=== PATIENT | female | born 1975 | race Caucasian/White ===

== ENCOUNTER 2021-07-20 07:17 | Emergency (ER) | payer OTHER, SELFPAY ==
--- NOTE | ~2021-07-20 | XR_ITS ---
EXAMINATION: XR chest 2V DATE: 07/20/2021 09:19 INDICATION: Left-sided chest and shoulder pain TECHNIQUE: PA and lateral views of the chest were obtained. COMPARISON: Chest radiograph dated 12/10/2018 FINDINGS: The lungs remain clear with no focal airspace opacities, pulmonary edema, pleural effusion or pneumot horax. The cardiomediastinal silhouette is normal. Mild thoracic spondylosis with chronic mild anteri or wedging of a couple mid thoracic vertebral bodies. IMPRESSION: 1. No acute cardiopulmonary disease. Reviewed, dictated and finalized at location A.
[2021-07-20 07:36] VITALS: BP 139/78; PULSE 74; RESP 18; TEMP 36.4; O2SAT 99
--- NOTE | 2021-07-20 07:41 | ECG_ITS ---
Measurements Intervals [place] Rate: 74 P: 55 ID: [id number] QRS: 29 QRSD: 85 T: 40 QT: 414 QTc: 462 Interpretive Statements SINUS RHYTHM NORMAL ECG Electronically Signed On 07-20-2021 7:51:57 CDT by Chandrakant Mae D.O.
[2021-07-20 07:50] VITALS: O2SAT 100
--- NOTE | 2021-07-20 07:57 | ED.UPPEXIN ---
HPI - Extremity Injury (Upper) General Chief Complaint: Extremity Injury, Upper Stated Complaint: L Shoulder Pain Time Seen by Provider: 07/20/21 07:52 Source: patient Mode of arrival: ambulatory Limitations: no limitations History of Present Illness HPI narrative: Patient is a 43 yo female with a history of diet controlled DM who presents for evaluation of left chest heaviness. Pt reported that symptoms began while she was at work, and has been experiencing the pain for 4 hours pain is 4/10. She did have some earlier dyspnea and dizziness that is resolved. She has had this occur in the past without known cause. Pt denies any dyspnea, palpitations. Pt does report some leg edema which is chronic. No fever, chills, nausea, vomiting or diaphoresis. 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 Nicotine patch at work. Smokes cigarettes. No history of early onset cardiac disease in family. No history of previous NV. No recent travel. No history of COVID. Related Data Allergies Allergy/AdvReac Type Severity Reaction Status Date / Time No Known Allergies Allergy Unverified 12/10/18 22:46 Review of Systems Review of Systems: CONSTITUTIONAL: Denies fever, chills, or sweats. EYES: Denies visual changes, redness, or discharge. ENT: Denies rhinorrhea, congestion, sore throat, or otalgia. CARDIOVASCULAR: Mild chest pain, denies palpitations, no pleuritic pain RESPIRATORY: Denies cough or dyspnea. GASTROINTESTINAL: Denies abdominal pain, nausea, vomiting, or diarrhea. GENITOURINARY: Denies dysuria or hematuria. SKIN: Denies rash or itching. MUSCULOSKELETAL: Denies back pain, joint pain, or myalgia. NEUROLOGIC: Denies headache, numbness, or weakness. [facility] Family History Family History (Updated 12/18/17 @ 22:07 by DOCTOR UNKNOWN) Mother Family history of mental disorder Family history of diabetes mellitus in first degree relative Diabetes mellitus Family history of hypercholesterolemia Sibling Family history of mental disorder Family history of diabetes mellitus in first degree relative Father Family history of diabetes mellitus in first degree relative Grandparent Family history of malignant neoplasm of breast Family history of heart disease in male family member before age 55 Cerebrovascular accident Other Family history of malignant neoplasm of male breast Social History Social History (Updated 07/20/21 @ 08:45 by Radha Suarez MD) Smoking status: Current every day smoker Tobacco type: cigarettes Second hand tobacco smoke exposure: Yes Alcohol intake: never Exam Narrative: GENERAL: Awake, alert, conversant HEAD: Normocephalic, atraumatic. EYES: PERRLA and EOMI. ENT: Nares clear, no rhinorrhea or epistaxis. Mucous membranes moist. NECK: Supple. CHEST: No respiratory distress, breathing even and non labored, no chest wall pain HEART: Regular rate, sinus rhythm ABDOMEN:Non distended, non tender EXTREMITIES: Normal range of motion. No pitting edema SKIN: Warm, dry, no rash. NEURO:No focal deficits. Alert and oriented x3 Course Vital Signs Vital signs: Vital Signs Temperature 36.4 C 07/20/21 07:36 Pulse Rate 74 07/20/21 07:36 Respiratory Rate 18 07/20/21 07:36 Blood Pressure 139/78 07/20/21 07:36 Pulse Oximetry 99 07/20/21 07:36 Temperature 36.4 C 07/20/21 07:36 Pulse Rate 82 07/20/21 09:42 Respiratory Rate 18 07/20/21 09:42 Blood Pressure 139/78 07/20/21 07:36 Pulse Oximetry 100 07/20/21 09:42 MDM - Extremity Injury (Upper) MDM Narrative Medical decision making narrative: The patient presented for evaluation of chest pain, left arm pain. Patient with pain around four hours at this point. EKG without acute ischemic changes. Vital signs are stable. Pt is not tachycardic or tachypneic. She is not hypoxic. Patient's EKG and labs are without significant high risk changes. Patient's heart score is 3. Cardiac risk facto
[2021-07-20 09:22] LABS: Basophils Percent Auto 0.4 % (0.2-1.2); Eosinophils Absolute Auto 0.3 K/mm3 (0-0.3); Eosinophils Percent Auto 3.7 % (0-4.4); Hemoglobin 14.1 g/dL (12.0-15.0); Immature Granulocyte Absolute 0.01 K/mm3 (0.00-0.031); Immature Granulocyte Percent A 0.1 % (0-0.5); Lymphocytes Absolute Auto 2.88 K/mm3 (0.9-3.2); Lymphocytes Percent Auto 42.8 % (18.3-44.2); Mean Corpuscular HGB Conc 33.6 g/dl (32-36); Mean Corpuscular Hemoglobin 31.3 pg (26-34); Mean Corpuscular Volume 93.3 fl (80-100); Mean Platelet Volume 9.9 fl (7.4-10.4); Monocytes Absolute Auto 0.5 K/mm3 (0.1-0.6); Monocytes Percent Auto 6.7 % (2.6-8.5); Neutrophils Absolute Auto 3.1 K/mm3 (1.3-6.7); Neutrophils Percent Auto 46.3 % (45.5-73.1); Platelet Count Result 266 k/mm3 (150-375); White Blood Count 6.7 K/mm3 (4.5-10.0)
[2021-07-20 09:34] LABS: INR 0.9; Prothrombin Time 11.8 Seconds (11.1-14.7)
[2021-07-20 09:35] LABS: Partial Thromboplastin Time 25.7 SECONDS (22.3-36.8)
[2021-07-20] MEDS: ASPIRIN 81 MG CHEWABLE TABLET 324 MG PO (09:35)
[2021-07-20] MEDS: ONDANSETRON INJ 4 MG/2 ML VIAL IV PUSH (09:36)
[2021-07-20] MEDS: MORPHINE SULFATE (*CRX) 4 MG/ML INJ IV PUSH (09:36)
[2021-07-20 09:42] VITALS: PULSE 82; RESP 18; O2SAT 100
[2021-07-20 09:53] LABS: Anion Gap 8 mmol/L (8-16); Blood Urea Nitrogen 8 mg/dL (7-17); Calcium 10.4 mg/dL (8.4-10.2); Carbon Dioxide 29 mmol/L (22-30); Chloride 103 mmol/L (98-107); Estimated CRCL calculation 77 ml/min; Estimated Glomerular Filt Rate > 60; Glucose 136 mg/dL (65-110); Sodium 140 mmol/L (137-145)
[2021-07-20 10:04] LABS: Troponin I < 0.012 ng/mL (0.000-0.034)
[2021-07-20 12:11] LABS: Troponin I < 0.012 ng/mL (0.000-0.034)
[2021-07-20 13:00] VITALS: BP 116/80; PULSE 80; RESP 16; TEMP 36.6; O2SAT 98
== END 2021-07-20 14:10 | disposition home or self-care (01) ==
PROVIDERS: Emergency Provider Emergency Medicine; PCP Family Medicine
DX: R07.89 Other chest pain (principal); E11.9 Type 2 diabetes mellitus without complications; F17.210 Nicotine dependence, cigarettes, uncomplicated
CPT/HCPCS: 36415; 71046; 80048; 84484; 85025; 85610; 85730; 93005; 96374; 96375; 99284; A9270; J2270; J2405

== ENCOUNTER 2021-10-17 04:24 | Emergency (ER) | payer OTHER, SELFPAY ==
--- NOTE | ~2021-10-17 | XR_ITS ---
XR chest 1V portable DATE: 10/17/2021 08:13 INDICATION: Covid TECHNIQUE: Portable AP chest on 10/17/2021 at 0802 hours COMPARISON: 07/20/2021 PA and lateral chest FINDINGS: Normal heart size. No hilar or mediastinal enlargement. The lungs are clear. No pleural eff usion or pulmonary vascular congestion or pneumothorax. IMPRESSION: Negative Reviewed, dictated and finalized at location A. TH INSPECTOR IMPRESSION: Negative
[2021-10-17 04:56] VITALS: BP 155/78; PULSE 91; RESP 17; TEMP 36.7; O2SAT 96
[2021-10-17 07:31] VITALS: BP 125/77; PULSE 87; RESP 20; TEMP 36.8; O2SAT 98
[2021-10-17 07:33] VITALS: O2SAT 99
--- NOTE | 2021-10-17 08:18 | ED.GENADULT ---
HPI - General Adult General Chief complaint: Upper Respiratory Infection Stated complaint: SOB, has COVID symptoms Time Seen by Provider: 10/17/21 07:55 Source: patient Mode of arrival: ambulatory Limitations: no limitations History of Present Illness HPI narrative: Patient presents with general weakness, feels like unable to take deep breath, ear aches, loss of food taste and smell over the last 5 days. Patient and some family members are tested positive for Covid in the last few days. Patient tested -4 days ago. Patient is not vaccinated for COVID Related Data Allergies Allergy/AdvReac Type Severity Reaction Status Date / Time gel capsules AdvReac Difficulty Uncoded 10/17/21 07:35 Swallowing Review of Systems Review of Systems: CONSTITUTIONAL: General weakness EYES: Denies visual changes, redness, or discharge. ENT: Denies rhinorrhea, congestion, sore throat, or otalgia. CARDIOVASCULAR: Denies chest pain, palpitations, or edema. RESPIRATORY: Denies cough or dyspnea. GASTROINTESTINAL: Denies abdominal pain, nausea, vomiting, or diarrhea. GENITOURINARY: Denies dysuria or hematuria. SKIN: Denies rash or itching. MUSCULOSKELETAL: Denies back pain, joint pain, or myalgia. NEUROLOGIC: Denies headache, numbness, or weakness. PSYCHIATRIC: Denies anxiety or depression. PMFSH Family History Family History Mother Family history of mental disorder Family history of diabetes mellitus in first degree relative Diabetes mellitus Family history of hypercholesterolemia Sibling Family history of mental disorder Family history of diabetes mellitus in first degree relative Father Family history of diabetes mellitus in first degree relative Grandparent Family history of malignant neoplasm of breast Family history of heart disease in male family member before age 55 Cerebrovascular accident Other Family history of malignant neoplasm of male breast Social History Social History Smoking status: Current every day smoker Tobacco type: cigarettes Second hand tobacco smoke exposure: Yes Alcohol intake: never Exam Narrative: General appearance: Well-developed, well-nourished Skin: Normal color Head: Normocephalic, nontraumatic Eyes: Clear conjunctiva ENT: Oropharynx normal, ears normal, nose normal Neck: Supple, nontender Chest and respiratory: Airway patent, no respiratory distress, no accessory muscle use Heart: Regular rate/rhythm Abdomen: Soft, nontender, no organomegaly, quiet bowel sounds Vascular: Normal peripheral pulses, normal capillary refill. Musculoskeletal: Normal range of motion, nontender back Neurologic: Alert and oriented ?3, DATA PROCESSOR is normal as tested, no gross motor deficit Course Course Emergency Course: Stable Vital Signs Vital signs: Vital Signs Temperature 36.7 C 10/17/21 04:56 Pulse Rate 91 10/17/21 04:56 Respiratory Rate 17 10/17/21 04:56 Blood Pressure 155/78 H 10/17/21 04:56 Pulse Oximetry 96 10/17/21 04:56 Temperature 36.8 C 10/17/21 07:31 Pulse Rate 87 10/17/21 07:31 Respiratory Rate 20 10/17/21 07:31 Blood Pressure 125/77 10/17/21 07:31 Pulse Oximetry 99 10/17/21 07:33 Medical Decision Making MDM Narrative Medical decision making narrative: Patient family tested positive for Covid infection in the last few days, patient had Covid symptoms, tested -4 days ago. I believe patient is Covid positive with false negative test. Chest x-ray, blood gas, Covid test ordered. Differential Diagnosis Differential Diagnosis: Covid infection Vital Signs Vital Si
[2021-10-17 08:46] LABS: Alveolar/Arterial O2 Gradient 19.5 mmHg; HCO3 ABG 27.1 mEq/l (22.0-26.0); Oxygen Content ABG 19.2 %vol (16.0-22.0); Oxygen Saturation ABG 95.5 % (95.0-100.0); Oxyhemoglobin 94.5 % THb (90.0-100.0); PCO2 ABG 44.1 mmHg (35.0-45.0); PO2 ABG 77.4 mmHg (80.0-100.0); Total Hemoglobin 14.4 g/dL (12.0-18.0); pH ABG 7.406 (7.350-7.450)
[2021-10-17 08:47] LABS: Device ROOM AIR; Fractional Inspired Oxygen 21 %; Modified Allen's Test Pass; PO2 FiO2 Ratio Arterial Blood 3.69 %; Site Drawn LEFT RADIAL
[2021-10-17 09:39] VITALS: BP 121/76; PULSE 83; RESP 16; O2SAT 99
[2021-10-17 17:04] LABS: SARS-CoV-2 RNA PCR Positive
== END 2021-10-17 09:40 | disposition home or self-care (01) ==
PROVIDERS: Emergency Provider Emergency Medicine; PCP Family Medicine
DX: U07.1 COVID-19 (principal); F17.210 Nicotine dependence, cigarettes, uncomplicated
CPT/HCPCS: 36600; 71045; 82805; 99283; C9803; U0003; U0005

== ENCOUNTER 2023-01-11 08:03 | Outpatient (CLI) | payer BC, SELFPAY ==
--- NOTE | ~2023-01-11 | US_ITS ---
Limited Abdominal Sonogram: Real-time sonographic imaging of the right upper quadrant was performed. Clinical History: GERD Findings: The liver appears echogenic, with no evidence of mass lesion or bile duct dilatation. Main portal vein demonstrates normal direction of flow. The gallbladder is well distended, and appears no rmal with no evidence of gallstone or wall thickening. The visualized pancreas, aorta, and IVC are un remarkable. Impression: Diffuse fatty infiltration of liver. Reviewed, dictated and finalized at location M. Impression: Diffuse fatty infiltration of liver.
== END 2023-01-11 08:04 | disposition home or self-care (01) ==
PROVIDERS: PCP Family Medicine; Visit Provider Family Medicine
DX: K21.9 Gastro-esophageal reflux disease without esophagitis (principal); K76.0 Fatty (change of) liver, not elsewhere classified
CPT/HCPCS: 76705

== ENCOUNTER 2023-03-25 11:09 | Outpatient (CLI) | payer BC, SELFPAY ==
[2023-03-25 11:46] LABS: Basophils Percent Auto 0.6 % (0.2-1.2); Eosinophils Absolute Auto 0.2 K/mm3 (0-0.3); Eosinophils Percent Auto 4.2 % (0-4.4); Hematocrit 41.8 % (37.0-47.0); Hemoglobin 14.1 g/dL (12.0-15.0); Immature Granulocyte Absolute 0.02 K/mm3 (0.00-0.031); Immature Granulocyte Percent A 0.4 % (0-0.5); Lymphocytes Absolute Auto 2.34 K/mm3 (0.9-3.2); Lymphocytes Percent Auto 44.2 % (18.3-44.2); Mean Corpuscular HGB Conc 33.7 g/dl (32-36); Mean Corpuscular Hemoglobin 30.3 pg (26-34); Mean Corpuscular Volume 89.7 fl (80-100); Mean Platelet Volume 9.7 fl (7.4-10.4); Monocytes Absolute Auto 0.3 K/mm3 (0.1-0.6); Monocytes Percent Auto 5.5 % (2.6-8.5); Neutrophils Absolute Auto 2.4 K/mm3 (1.3-6.7); Neutrophils Percent Auto 45.1 % (45.5-73.1); Platelet Count Result 270 k/mm3 (150-375); Red Blood Count 4.66 M/mm3 (4.2-5.4); Red Cell Distribution Width 13.1 % (11.5-14.5); White Blood Count 5.3 K/mm3 (4.5-10.0)
[2023-03-25 11:56] LABS: INR 0.9; Prothrombin Time 12.4 Seconds (11.1-14.7)
[2023-03-25 11:57] LABS: Anion Gap 7 mmol/L (8-16); Blood Urea Nitrogen 8 mg/dL (7-17); Calcium 8.9 mg/dL (8.4-10.2); Carbon Dioxide 25 mmol/L (22-30); Chloride 104 mmol/L (98-107); Cholesterol 186 mg/dL (0-200); Estimated Glomerular Filt Rate > 60; Glucose 232 mg/dL (65-110); HDL Direct 37 mg/dL; Potassium 4.1 mmol/L (3.4-5.0); Sodium 136 mmol/L (137-145); Triglycerides 266 mg/dL (<150)
[2023-03-25 12:07] LABS: LDL Cholesterol Direct 106 mg/dL
== END 2023-03-25 11:10 | disposition home or self-care (01) ==
PROVIDERS: PCP Family Medicine; Visit Provider Internal Medicine Cardiovascular Disease
DX: R94.39 Abnormal result of other cardiovascular function study (principal); Z72.0 Tobacco use; E66.9 Obesity, unspecified; I10 Essential (primary) hypertension; R07.9 Chest pain, unspecified; R00.2 Palpitations; Z13.6 Encounter for screening for cardiovascular disorders
CPT/HCPCS: 36415; 80048; 80061; 85025; 85610

== ENCOUNTER 2023-09-29 18:08 | Emergency (ER) | payer BC, SELFPAY ==
[2023-09-29 18:22] VITALS: BP 134/78; PULSE 84; RESP 16; TEMP 36.6; O2SAT 100
--- NOTE | 2023-09-29 18:48 | ED.BACK ---
HPI - Back Pain/Injury General Chief Complaint: Back Pain/Injury Stated Complaint: Back Pain Time Seen by Provider: 09/29/23 18:24 Source: patient and RN notes reviewed Mode of arrival: ambulatory Limitations: no limitations History of Present Illness HPI Narrative: Patient presents today complaining of 4 to five-day history of bilateral low back pain. Pain started suddenly when she bent down to tie her shoes. Pain radiates to the bilateral buttocks. Denies numbness or tingling in the legs or feet. Denies loss of bowel or bladder control or. He she has gone to the chiropractor for adjustment. She has been taking Tylenol and ibuprofen and applying ice with mild relief. Related Data Home Medications Medication Instructions Recorded Confirmed glipizide 5 mg tablet, extended mg PO 09/29/23 09/29/23 release 24 hr Allergies Allergy/AdvReac Type Severity Reaction Status Date / Time gel capsules AdvReac Difficulty Uncoded 09/29/23 18:27 Swallowing Review of Systems Review of Systems: CONSTITUTIONAL: Denies body aches, fever, chills, or sweats. EYES: Denies visual changes, redness, or discharge. ENT: Denies rhinorrhea, congestion, sore throat, or otalgia. CARDIOVASCULAR: Denies chest pain, palpitations, or edema. RESPIRATORY: Denies cough or dyspnea. GASTROINTESTINAL: Denies abdominal pain, nausea, vomiting, or diarrhea. GENITOURINARY: Denies dysuria or hematuria. SKIN: Denies rash, itching, or wounds. MUSCULOSKELETAL: + back pain NEUROLOGIC: Denies headache, numbness, tingling, or weakness. PSYCH: Denies depression or anxiety. [facility] Family History Family History Mother Family history of mental disorder Family history of diabetes mellitus in first degree relative Diabetes mellitus Family history of hypercholesterolemia Sibling Family history of mental disorder Family history of diabetes mellitus in first degree relative Father Family history of diabetes mellitus in first degree relative Grandparent Family history of malignant neoplasm of breast Family history of heart disease in male family member before age 55 Cerebrovascular accident Other Family history of malignant neoplasm of male breast Social History Social History Smoking status: Current every day smoker Tobacco type: cigarettes Second hand tobacco smoke exposure: Yes Alcohol intake: never Comments At time of signature, I have reviewed and agree with nursing past medical, surgical, social and family history unless otherwise noted. Please see nursing chart for further information. There is no relevant family history pertinent to the presenting complaint Exam Narrative: GENERAL: Well-appearing, well-nourished, and in no acute distress. HEAD: Normocephalic, atraumatic. EYES: EOMI. No redness or drainage. Conjunctivae normal. ENT: Mucous membranes pink and moist. NECK: Normal AROM. CHEST: No respiratory distress. MUSCULOSKELETAL: No bony tenderness of the spine. Bilateral lower lumbar paraspinal muscle tenderness that extends to the bilateral buttocks. Distal sensation intact. Saddle sensation intact. Capillary refill normal. Dorsiflexion and plantar flexion equal and strong against resistance. EXTREMITIES: Normal range of motion. No edema. SKIN: Warm, dry, no rash. Capillary refill normal. Normal skin turgor. NEURO: No focal deficits. Alert and oriented x3. Gait steady. PSYCH: Normal affect. No signs of depression or anxiety. Course Course Level of Care: Express Care Visit Vital Signs Vital signs: Vital Signs Temperature 97.9 F 09/29/23 18:22 Pulse Rate 84 09/29/23 18:22 Respiratory Rate 16 09/29/23 18:22 Blood Pressure 134/78 09/29/23 18:22 Pulse Oximetry 100 09/29/23 18:22 Oxygen Delivery Room Air 09/29/23 18:22 Temperature 97.9 F
== END 2023-09-29 18:54 | disposition home or self-care (01) ==
PROVIDERS: Emergency Provider Nurse Practitioner; PCP Family Medicine
DX: S39.012A Strain of muscle, fascia and tendon of lower back, initial encounter (principal); F17.210 Nicotine dependence, cigarettes, uncomplicated; Z79.899 Other long term (current) drug therapy; X50.0XXA Overexertion from strenuous movement or load, initial encounter
CPT/HCPCS: 99213; G0463

== ENCOUNTER 2025-05-17 22:40 | Emergency (ER) | payer BC, SELFPAY ==
--- NOTE | ~2025-05-17 | XR_ITS ---
CHEST RADIOGRAPH, PA AND LATERAL CLINICAL HISTORY: MID STERNAL Chest pain . COMPARISON: 10/19/2021 TECHNIQUE: PA and lateral views of the chest. FINDINGS The cardiomediastinal silhouette is unremarkable. The lungs are clear. IMPRESSION: No focal infiltrate or effusion. Reviewed, dictated and finalized at location A.
--- OUTSIDE RECORDS SUMMARY | 2025-05-17 22:41 | XMS_ITS | Clinical Summary ---
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 Gender Identity Not on file Sexual Orientation Not on file Plan of Treatment Health Maintenance Due Date Last Done Comments Hepatitis C Virus (HCV) Screening 1975 TdaP Immunization 1975 Hepatitis B Immunization (1 of 3 - 19+ 3-dose series) 1994 Pap Smear 1996 Cervical Cancer Screening (CCS) 2005 HPV/Cotest 2005 Cologuard 2020 Colonoscopy 2020 Colorectal Cancer Screening 2020 Immunochemical Fecal Occult Blood 2020 SARS-COV-2 Immunization ( season) 2024 Influenza Immunization (#1) 2025 Respiratory Syncytial Virus (RSV) Immunization (Adult) (1 - 1-dose 75+ series) 2050 Human Papillomavirus (HPV) Immunization Aged Out No longer eligible b ased on patient's age to complete this topic Meningococcal Immunization (ACWY) Aged Out No longer eligible based on patient's age to complete this topic Pneumococcal Immunization Combined Aged Out No longer eligible based on patient's age to complete this topic Rotavirus Immunization Aged Out No lo nger eligible based on patient's age to complete this topic
--- OUTSIDE RECORDS SUMMARY | 2025-05-17 22:42 | XMS_ITS | Data Portability ---
Author Organization [facility], Main Office Address [address] [place] [address] Assessment No assessment recorded. Plan of Treatment Reminders Order Date Submit Date Provider Last Modified By Organization Details Last Modified Time Details Appointments None recorded. Lab HbA1c (hemoglobin A1c), blood 2022 023 [email or web address] Not available 3 10:48:04 BMP, serum or plasma 2022 023 [email or web address] Not available 3 10:48:15 vitamin D, 25-hydroxy, total, serum 2022 023 [facility], [address] [place], [address], 3 03:19:06 TSH, serum or plasma 2022 023 [facility], [address] [place], [address], 3 21:32:10 CBC w/ auto diff 2022 023 [facility], [address] [place], [address], 3 20:22:39 CMP, serum or plasma 2022 023 [facility], [address] [place], [address], 3 20:56:52 vitamin B12, serum 2022 023 [facility], [address] [place], [address], 3 22:13:04 glycohemogl obin, total, blood 2022 023 [facility], [address] [place], [address], 3 22:29:44 estradiol, serum 2022 023 [facility], [address] [place], [address], 3 09:13:30 lh (luteinizin g hormone), serum 2022 023 [facility], [address] [place], [address], 3 10:58:37 FSH (follicle-s timulating hormone), serum 2022 023 [facility], [address] [place], [address], 3 10:58:36 Referral cardiologis t referral 2022 023 [email or web address] 3 [place], [address] [place] , [address], [address], 3 12:41:53 Procedures None recorded. Surgeries None recorded. Imaging US, abdomen - please call pt to schedule JOSEPH-jesse dder 2022 023 [facility], [address] [place] [address] [address], [place], [address], 3 10:00:26 Medication Orders phentermine 37.5 mg tablet 2023 024 [facility]acy #[id number], [address], [place], [address], 4 15:56:56 escitalopra m 10 mg tablet 2023 024 [email or web address] [id number], [address], [place], [address], 4 11:53:41 propranolol 10 mg tablet 2023 024 [id number] [address] [place], [address], 4 15:56:54 glipizide ER 5 mg tablet, extended release 24 hr 2022 023 [id number], [address] [place], [address], 3 10:23:58 buspirone 10 mg tablet 2022 023 [id number] [address] [place], [address], 3 10:27:45 hydroxyzine HCl 25 mg tablet 2022 023 [id number] [address] [place], [address], 3 10:27:44 pantoprazol e 40 mg tablet,kayode yed release 2022 023 [email or web address] [id number] [address] [place], [address], 3 16:14:25 Patient TargetsNo targets recorded. Patient InstructionsNo instructions recorded. Reason for Referral [employer] Referral for Ch est pain Referring Physician: Tracey Phelps, Family Medicine, Encounter Date: 12/22/2022 Results Created Date Observation Date Name Description Value Unit Range Abnormal Flag Note LastModifiedBy Organization Detail LastModifiedTime 12/23/19 23 12/22/2022 CBC/C OMPLE TE BLD COUNT W/DIF F white blood cells 6.4 x10'3 /uL 4.2-10 .8 Not Available [facility] (Lab) [address] [place], [address], 12/22/2022 20:22:39 12/23/19 23 12/22/2022 CBC/C OMPLE TE BLD COUNT W/DIF F red blood cells 4.93 x10'6 /uL 3.80-5 .20 Not Available [facility] (Lab) [address] [place], [address], 12/22/2022 20:22:39 12/23/19 23 12/22/2022 CBC/C OMPLE TE BLD COUNT W/DIF F hemoglobin 14.7 g/dL 12.0-1 5.6 Not Available [facility] (Lab) [address] [place], [address], 12/22/2022 20:22:39 12/23/19 23 12/22/2022 CBC/C OMPLE TE BLD COUNT W/DIF F hematocrit 44.6 % 35.7-4 5.7 Not Available [facility] (Lab) [address] [place], [address], 12/22/2022 20:22:39 12/23/19 23 12/22/2022 CBC/C OMPLE TE BLD COUNT W/DIF F mean red cell volume 90.5 fL 82.0-9 9.0 Not Available [facility] (Lab) [address] [place], [address], 12/22/2022 20:22:39 12/23/19 23 12/22/2022 CBC/C OMPLE TE BLD COUNT W/DIF F mean red cell hemoglobin 29.8 pg 27.0-3 3.0 Not Available [facility] (Lab) [address] [place], [address], 12/22/2022 20:22:39 12/23/19 23 12/22/2022 CBC/C OMPLE TE BLD COUNT W/DIF F mean RBC HGB concentratio n 33.0 g/dL 31.0-3 6.0 Not Available [facility] (Lab) [address] [place], [address], 12/22/2022 20:22:39 12/23/19 23 12/22/2022 CBC/C OMPLE TE BLD COUNT W/DIF F red cell distribution width 13.0 % 11.8-1 5.5 Not Available [facility] (Lab) [address] [place], [address], 12/22/2022 20:22:39 12/23/19 23 12/22/2022 CBC/C OMPLE TE BLD COUNT W/DIF F platelets 297 x10'3 /uL 150-40 0 Not Available [facility] (Lab) [address] [place], [address], 12/22/2022 20:22:39 12/23/19 23 12/22/2022 CBC/C OMPLE TE BLD COUNT W/DIF F mean platelet volume 10.3 fL 9.0-12 .4 Not Available [facility] (Lab) [address] [place], [address], 12/22/2022 20:22:39 12/23/19 23 12/22/2022 CBC/C OMPLE TE BLD COUNT W/DIF F neutrophils 46.8 % 39.0-7 2.0 Not Available [facility] (Lab) [address] [place], [address], 12/22/2022 20:22:39 12/23/19 23 12/22/2022 CBC/C OMPLE TE BLD COUNT W/DIF F lymphocytes 43.0 % 16.0-4 7.0 Not Available [facility] (Lab) [address] [place], [address], 12/22/2022 20:22:39 12/23/19 23 12/22/2022 CBC/C OMPLE TE BLD COUNT W/DIF F monocytes 5.7 % 5.0-12 .0 Not Available [facility] (Lab) [address] [place], [address], 12/22/2022 20:22:39 12/23/19 23 12/22/2022 CBC/C OMPLE TE BLD COUNT W/DIF F eosinophils 3.3 % 1.0-7. 0 Not Available [facility] (Lab) [address] [place], [address], 12/22/2022 20:22:39 12/23/19 23 12/22/2022 CBC/C OMPLE TE BLD COUNT W/DIF F basophils 0.9 % 0.0-2. 0 Not Available [facility] (Lab) [address] [place], [address], 12/22/2022 20:22:39 12/23/19 23 12/22/2022 CBC/C OMPLE TE BLD COUNT W/DIF F immature granulocytes 0.3 % 0.00-0 .50 Not Available [facility] (Lab) [address] [place], [address], 12/22/2022 20:22:39 12/23/19 23 12/22/2022 CBC/C OMPLE TE BLD COUNT W/DIF F neutrophils, absolute count 2.97 x10'3 /uL 1.5-8. 0 Not Available [facility] (Lab) [address] [place], [address], 12/22/2022 20:22:39 12/23/19 23 12/22/2022 CBC/C OMPLE TE BLD COUNT W/DIF F lymphocytes, absolute count 2.73 x10'3 /uL 1.07-3 .43 Not Available [facility] (Lab) [address] [place], [address], 12/22/2022 20:22:39 12/23/19 23 12/22/2022 CBC/C OMPLE TE BLD COUNT W/DIF F monocytes, absolute count 0.36 x10'3 /uL 0.29-0 .99 Not Available [facility] (Lab) [address] [place], [address], 12/22/2022 20:22:39 12/23/19 23 12/22/2022 CBC/C OMPLE TE BLD COUNT W/DIF F eosinophils, absolute count 0.21 x10'3 /uL 0.02-0 .53 Not Available [facility] (Lab) [address] [place], [address], 12/22/2022 20:22:39 12/23/19 23 12/22/2022 CBC/C OMPLE TE BLD COUNT W/DIF F basophils, absolute count 0.06 x10'3 /uL 0.01-0 .08 Not Available [facility] (Lab) [address] [place], [address], 12/22/2022 20:22:39 12/23/19 23 12/22/2022 CBC/C OMPLE TE BLD COUNT W/DIF F immature granulocytes ,absolute 0.02 x10'3 /uL 0.00-0 .05 Not Available [facility] (Lab) [address] [place], [address], 12/22/2022 20:22:39 12/23/19 23 12/22/2022 CBC/C OMPLE TE BLD COUNT W/DIF F nucleated red blood cells 0.0 % -0 Not Available [facility] (Lab) [address] [place], [address], 12/22/2022 20:22:39 12/23/19 23 12/22/2022 CBC/C OMPLE TE BLD COUNT W/DIF F NRBC# 0.00 x10'3 /uL Not Available [facility] (Lab) [address] [place], [address], 12/22/2022 20:22:39 12/23/19 23 12/22/2022 COMPR EHENS SEPIDEH METAB OLIC PANEL sodium 137 mmol/ L 137-14 5 Not Available [facility] (Lab) [address] [place], [address], 12/22/2022 20:56:52 12/23/19 23 12/22/2022 COMPR EHENS SEPIDEH METAB OLIC PANEL potassium 4.6 mmol/ L 3.5-5. 1 Not Available [facility] (Lab) [address] [place], [address], 12/22/2022 20:56:52 12/23/19 23 12/22/2022 COMPR EHENS SEPIDEH METAB OLIC PANEL chloride 103 mmol/ L 98-107 Not Available [facility] (Lab) [address] [place], [address], 12/22/2022 20:56:52 12/23/19 23 12/22/2022 COMPR EHENS SEPIDEH METAB OLIC PANEL carbon dioxide 28 mmol/ L 22-30 Not Available [facility] (Lab) [address] [place], [address], 12/22/2022 20:56:52 12/23/19 23 12/22/2022 COMPR EHENS SEPIDEH METAB OLIC PANEL anion gap 10.6 mmol/ L 14-22 low Not Available [facility] (Lab) [address] [place], [address], 12/22/2022 20:56:52 12/23/19 23 12/22/2022 COMPR EHENS SEPIDEH METAB OLIC PANEL glucose 150 mg/dL 70-99 high Not Available [facility] (Lab) [address] [place], [address], 12/22/2022 20:56:52 12/23/19 23 12/22/2022 COMPR EHENS SEPIDEH METAB OLIC PANEL BUN 8 mg/dL 8-19 Not Available [facility] (Lab) [address] [place], [address], 12/22/2022 20:56:52 12/23/19 23 12/22/2022 COMPR EHENS SEPIDEH METAB OLIC PANEL creatinine 0.81 mg/dL 0.66-1 .25 Not Available [facility] (Lab) [address] [place], [address], 12/22/2022 20:56:52 12/23/19 23 12/22/2022 COMPR EHENS SEPIDEH METAB OLIC PANEL GFR >60 Refer ence Range : Devine ge GFR Healt hy Adult : >60 mL/mi n/1.7 3 m2 Chron ic Kidne y Disea se: 15-60 mL/mi n/1.7 3 m2 Kidne y Failu re: <15/m L/min /1.73 m2 www.n iddk. nih.g ov The MDRD study equat ion has not been valid ated in child reid <18 years of age; pregn ant women ; the elder ly >85 years of age; or in some racia l or ethni c subgr oups, such as Sydnee nics. Outsi de the valid ated ez eters , estim ated GFR is less accur ate, requi ring clini meredith judgm ent on a case- by-ca se basis . Clini meredith inter preta tion for other races and ages must be made by the clini nhan. The MDRD study equat ion has not been valid ated for the evalu ation of serum creat inine relat ed to nutri shi l statu s or medic ation usage . For perso ns <18 years of age, a pedia tric GFR calcu lator is avail able on the F websi te: https ://james w.leslie carlos.o theodore/pr erikaess ional s/kdo qi/gf r_cal culat or Not Available [facility] (Lab) [address] [place], [address], 12/22/2022 20:56:52 12/23/19 23 12/22/2022 COMPR EHENS SEPIDEH METAB OLIC PANEL alkaline phosphatase 98 U/L 38-126 Not Available [facility] (Lab) [address] [place], [address], 12/22/2022 20:56:52 12/23/19 23 12/22/2022 COMPR EHENS SEPIDEH METAB OLIC PANEL alanine aminotransfe rase 61 U/L 0-35 high Not Available [facility] (Lab) [address] [facility] [place], [address], 12/22/2022 20:56:52 12/23/19 23 12/22/2022 COMPR EHENS SEPIDEH METAB OLIC PANEL aspartate aminotransfe rase 48 U/L 15-37 high Not Available [facility] (Lab) [address] [place], [address], 12/22/2022 20:56:52 12/23/19 23 12/22/2022 COMPR EHENS SEPIDEH METAB OLIC PANEL bilirubin, total 0.80 mg/dL 0.20-1 .30 Not Available [facility] (Lab) [address] [place], [address], 12/22/2022 20:56:52 12/23/19 23 12/22/2022 COMPR EHENS SEPIDEH METAB OLIC PANEL calcium 9.5 mg/dL 8.4-10 .2 Not Available [facility] (Lab) [address] [place], [address], 12/22/2022 20:56:52 12/23/19 23 12/22/2022 COMPR EHENS SEPIDEH METAB OLIC PANEL total protein 7.2 g/dL 6.3-8. 2 Not Available [facility] (Lab) [address] [place], [address], 12/22/2022 20:56:52 12/23/1912/22/2022 COMPR EHENS SEPIDEH METAB OLIC PANEL albumin 4.3 g/dL 3.4-5. 0 Not Available [facility] (Lab) [address] [place], [address], 12/22/2022 20:56:52 12/23/19 23 12/22/2022 COMPR EHENS SEPIDEH METAB OLIC PANEL globulin 2.9 g/dL 2.6-4. 2 Not Available [facility] (Lab) [address] [place], [address], 12/22/2022 20:56:52 12/23/19 23 12/22/2022 COMPR EHENS SEPIDEH METAB OLIC PANEL A/G ratio 1.5 ratio 1.0-2. 0 Not Available [facility] (Lab) [address] [place], [address], 12/22/2022 20:56:52 12/23/19 23 12/22/2022 VITAM IN D 25-HY DROXY [id number] 23.7 NG/mL 30-100 low Vitam in D Statu s: Defic ient: <20 ng/mL Insuf ficie nt: 20-29 ng/mL Suffi cient : 30-10 0 ng/mL Not Available [facility] (Lab) [address] [place], [address], 12/22/2022 21:16:08 12/23/19 23 12/22/2022 TSH thyroid-stim ulating hormone 1.820 uIU/m L 0.465- 4.680 Not Available [facility] (Lab) [address] [place], [address], 12/22/2022 21:32:10 12/23/19 23 12/22/2022 VITAM IN B12 (RABIA PAPO ) vb12 538 pg/mL 239-93 1 Not Available [facility] (Lab) [address] [place], [address], 12/22/2022 22:13:04 12/23/19 23 12/22/2022 HEMOG LOBIN A1C HA1C 7.8 % 4.0-6. 0 high Diabe mali Jose Miguele rolanda Meléndezte tolu: <5.7% Consi stent with absen ce of diabe mali 5.7-6 .4% Consi stent with incre ased risk for diabe mali (pred iabet es) >OR=6 .5% Consi stent with diabe mali REFER ENCE: Diabe mali Care 2016, 39(Barrera ppl.1 ):s13 -s22 Not Available [facility] (Lab) [address] [place], [address], 12/22/2022 22:29:44 12/23/19 23 12/24/2022 ESTRA DIOL estradiol 20.3 pg/mL Adult Femal e: Folli cular phase 12.5 - 166.0 Ovula tion phase 85.8 - 498.0 Lutea l phase 43.8 - 211.0 Postm enopa usal <6.0 - 54.7 Pregn kevin 1st trime ster 215.0 - >4300 .0 Shahnaz ECLIA metho dolog y Perfo rmed at: [facility] [address] [facility] [address] Lab Direc tor: Edgardo potter PhD, Phone : [phone] Not Available [facility] (Lab) [address] [place], [address], 12/24/2022 09:13:29 12/23/19 23 12/24/2022 LH/FAVIO TEINI ZING HORMO NE LH - [facility] 39.5 mIU/m L Adult Femal e: Folli cular phase 2.4 - 12.6 Ovula tion phase 14.0 - 95.6 Lutea l phase 1.0 - 11.4 Postm enopa usal 7.7 - 58.5 Perfo rmed at: [facility] [address] [place] [address] Lab Direc tor: Edgardo potter PhD, Phone : [phone] Not Available [facility] (Lab) [address] [place], [address], 12/24/2022 10:12:06 12/23/19 23 12/24/2022 FSH/F OLLIC LE STIMU LAT. HORMO NE FSH - [facility] 58.2 mIU/m L Adult Femal e: Folli cular phase 3.5 - 12.5 Ovula tion phase 4.7 - 21.5 Lutea l phase 1.7 - 7.7 Postm enopa usal 25.8 - 134.8 Perfo rmed at: [facility] [place] [address] Lab Direc tor: Edgardo potter PhD, Phone : [phone] Not Available [facility] (Lab) [address] [place], [address], 12/24/2022 10:12:09 06/07/20 23 06/07/2023 BASIC METAB OLIC PANEL sodium 138 mmol/ L 137-14 5 Not Available [facility] (Lab) [address] [place], [address], 06/07/2023 19:40:22 06/07/20 23 06/07/2023 BASIC METAB OLIC PANEL potassium 4.3 mmol/ L 3.5-5. 1 Not Available [facility] (Lab) [address] [place], [address], 06/07/2023 19:40:22 06/07/20 23 06/07/2023 BASIC METAB OLIC PANEL chloride 106 mmol/ L 98-107 Not Available [facility] (Lab) [address] [place], [address], 06/07/2023 19:40:22 06/07/20 23 06/07/2023 BASIC METAB OLIC PANEL carbon dioxide 24 mmol/ L 22-30 Not Available [facility] (Lab) [address] [place], [address], 06/07/2023 19:40:22 06/07/20 23 06/07/2023 BASIC METAB OLIC PANEL anion gap 12.3 mmol/ L 14-22 low Not Available [facility] (Lab) [address] [place], [address], 06/07/2023 19:40:22 06/07/20 23 06/07/2023 BASIC METAB OLIC PANEL glucose 198 mg/dL 70-99 high Not Available [facility] (Lab) [address] [place], [address], 06/07/2023 19:40:22 06/07/20 23 06/07/2023 BASIC METAB OLIC PANEL BUN 8 mg/dL 8-19 Not Available [facility] (Lab) [address] [place], [address], 06/07/2023 19:40:22 06/07/20 23 06/07/2023 BASIC METAB OLIC PANEL creatinine 0.81 mg/dL 0.66-1 .25 Not Available [facility] (Lab) [address] [place], [address], 06/07/2023 19:40:22 06/07/20 23 06/07/2023 BASIC METAB OLIC PANEL GFR >60 Refer ence Range : Devine ge GFR Healt hy Adult : >60 mL/mi n/1.7 3 m2 Chron ic Kidne y Disea se: 15-60 mL/mi n/1.7 3 m2 Kidne y Failu re: <15/m L/min /1.73 m2 www.n iddk. nih.g ov The MDRD study equat ion has not been valid ated in child reid <18 years of age; pregn ant women ; the elder ly >85 years of age; or in some racia l or ethni c subgr oups, such as Hispa nics. Outsi de the valid ated ez eters , estim ated GFR is less accur ate, requi ring clini meredith judgm ent on a case- by-ca se basis . Clini meredith inter preta tion for other races and ages must be made by the clini nhan. The MDRD study equat ion has not been valid ated for the evalu ation of serum creat inine relat ed to nutri shi l statu s or medic ation usage . For perso ns <18 years of age, a pedia tric GFR calcu lator is avail able on the F websi te: https ://ww w.kid breanna.o rg/pr ofess ional s/kdo qi/gf r_cal culat or Not Available [facility] (Lab) [address] [place], [address], 06/07/2023 19:40:22 06/07/20 23 06/07/2023 BASIC METAB OLIC PANEL calcium 9.4 mg/dL 8.4-10 .2 Not Available [facility] (Lab) [address] [place], [address], 06/07/2023 19:40:22 06/07/20 23 06/07/2023 HEMOG LOBIN A1C HA1C 7.1 % 4.0-6. 0 high Diabe mali Scree rolanda Crite tolu: <5.7% Consi stent with absen ce of diabe mali 5.7-6 .4% Consi stent with incre ased risk for diabe mali (pred iabet es) >OR=6 .5% Consi stent with diabe mali REFER ENCE: Diabe mail Care 2016, 39(Barrera ppl.1 ):s13 -s22 Not Available [facility] (Lab) [address] [place], [address], 06/07/2023 21:26:04 07/20/20 21 07/20/2021 XR, chest No observ ation record ed. [id number] [facility] (Imaging) [address], [place], [address], 12/21/2022 10:50:27 10/17/20 21 10/17/2021 XR, chest No observ ation record ed. [id number] [facility] [address], [place], [address], 12/21/2022 10:50:27 01/12/20 23 01/11/2023 US, abdom en No observ ation record ed. [email or web address] [address], [place], [address], 03/13/2023 11:09:36 02/07/20 23 02/06/2023 exerc ise stres s test No observ ation record ed. [address] [facility] [address], [place], [address], 02/07/2023 07:39:18 02/08/20 23 02/06/2023 US, echoc ardio gram No observ ation record ed. [email or web address] [facility] [address], [place], [address], 02/08/2023 08:20:00 03/07/20 23 03/06/2023 NM, myoca rdial perfu landy scan No observ ation record ed. [email or web address] [facility] [address], [place], [address], 03/09/2023 09:03:02 05/04/20 23 04/07/2023 home sleep study No observ ation record ed. [email or web address] [facility] [address], [place], [address], 05/08/2023 10:20:40 Result Notes None recorded. Problems Name Problem SNOMED Code Status Onset Date Resolution Date Notes Provider Name and Address Organization Details Recorded Time Hyperlipi demia 65695182 Active 2018 Not Available [facility] 3 10:45:31 Diabetes mellitus 96622561 Active 2018 takes metformin Not Available [facility] 3 10:45:31 Chest pain 89997088 Active 2022 Tracey Phelps MD [address] [place] [address], [place], [address] , [employer] 3 15:06:46 Gastroeso phageal reflux disease 165901080 Active 2022 Tracey Phelps MD [address] [place] [address], [place], [address] , [employer] 3 15:08:27 Fatigue 41206896 Active 2022 Tracey Phelps MD [address] [place] [address], [place], [address] , [employer] 3 15:12:23 Vitamin D deficienc y 64189016 Active 2022 Tracey Phelps MD [address], [place] [address], [place], [address] , [employer] 3 15:14:58 Uncontrol led type 2 diabetes mellitus 093209594 Active 2022 Tracey Phelps MD [address], [place] [address], [place], [address] , [employer] 3 10:19:32 Anxiety 76042479 Active 2022 Tracey Phelps MD [address] [place] [address], [place], [address] , [employer] 3 10:26:25 Morbid obesity 178747868 Active 2023 WILNER Taylor [address] [place] [address], [place], [address] , [employer] 4 12:51:53 Notes:Some problems listed i n Document: #[id number] could not be added to this patient's chart. Please review this document and add these problems to the patient's chart manually as needed. Problem Notes None recorded. Medical Equipment None Reported. Medications Name Sig Start Date Stop Date Status Note LastModified by Organization Details LastModified Time cyclobenz aprine 10 mg tablet TAKE 1 TABLET BY MOUTH THREE TIMES DAILY NEEDED FOR MUSCLE SPASM active Not Available Not Available No t Available amoxicill in 500 mg capsule 05/28 completed Not Available Not Available Not Available atorvasta tin 40 mg tablet TAKE 1 TABLET BY MOUTH EVERY DAY 12/22 completed Not Available Not Available Not Available metformin 500 mg tablet 1 po bid 10/03 completed low back pain Not Available Not Available Not Available bupropion HCl SR 150 mg tablet,12 hr sustained -release 05/28 completed Not Available Not Available Not Available azithromy nena 250 mg tablet TAKE 2 TABLETS (500 MG) BY ORAL ROUTE ONCE DAILY FOR 1 DAY THEN 1 TABLET (250 MG) BY ORAL ROUTE ONCE DAILY FOR 4 DAYS 12/22 completed Not Available Not Available Not Available ibuprofen 800 mg tablet 05/28 completed Not Available Not Available Not Available prednison e 20 mg tablet Take 2 tablets every day by oral route for 5 days. 12/22 completed Not Available Not Available Not Available glipizide ER 5 mg tablet, extended release 24 hr active Not Available Not Available Not Available permethri n 5 % topical cream APPLY (THOROUG HLY MASSAGE INTO SKIN FROM HEAD TO SOLES OF FEET) BY TOPICAL ROUTE ONCE LEAVE ON FOR 8-14 HR, THEN REMOVE BY THOROUGH WASHING 12/22 completed Not Available Not Available Not Available phentermi ne 37.5 mg tablet TAKE 1 TABLET BY MOUTH EVERY DAY 2023 active Not Available Not Available Not Avai lable acetamino phen 300 mg-codein e 30 mg tablet 05/28 completed Not Available Not Available Not Available omeprazol e 40 mg capsule,d elayed release Take 1 capsule every day by oral route. 12/22 completed Not Available Not Available Not Available propranol ol 10 mg tablet TAKE 2 TABLETS BY MOUTH 3 TIMES A DAY NEEDED 2023 active Not Available Not Available Not Avai lable pantopraz ole 40 mg tablet,de layed release TAKE 1 TABLET BY MOUTH EVERY DAY 2022 active Not Available Not Available Not Avai lable buspirone 10 mg tablet TAKE 1-2 TABLETS BY MOUTH TWICE DAILY NEEDED FOR ANXIETY active Not Available Not Available No t Available prednison e 50 mg tablet TAKE 1 TABLET BY MOUTH DAILY X 5 DAYS active Not Available Not Available No t Available bupropion HCl 75 mg tablet 05/28 completed Not Available Not Available Not Available nicotine 21 mg/24 hr daily transderm al patch 05/28 completed Not Available Not Available Not Available omeprazol e 20 mg capsule,d elayed release 05/28 completed Not Available Not Available Not Available hydroxyzi ne HCl 25 mg tablet active Not Available Not Available No t Available ergocalci ferol (vitamin D2) 1,250 mcg (50,000 unit) capsule TAKE 1 CAPSULE BY MOUTH ONE TIME PER WEEK 12/22 completed Not Available Not Available Not Available methylpre dnisolone 4 mg tablets in a dose pack 11/26 completed Not Available Not Available Not Available loratadin e 10 mg tablet Take 1 tablet every day by oral route. 12/22 completed Not Available Not Available Not Available amoxicill in 875 mg-potass ium clavulana te 125 mg tablet Take 1 tablet every 12 hours by oral route for 7 days. 12/22 completed Not Available Not Available Not Available escitalop neha 10 mg tablet TAKE 1 TABLET BY MOUTH EVERY DAY FOR 30 DAYS 2023 active Not Available Not Available Not Avai lable Tums active Not Available Not Availa ble Not Available Januvia 100 mg tablet 05/28 completed Not Available Not Available Not Available Flonase Allergy Relief 50 mcg/actua tion nasal spray,cristela pension Mantoloking 1 spray every day by intranas al route. 12/22 completed Can start with 2 sprays in each nostril for 1 week, then taper to 1 spray in each nostril. Not Available Not Available Not Available Vitals Date Recorded Body height Body mass index (BMI) Body weight Body temperature Oxygen saturation Oxygen saturation in Arterial blood by Pulse oximetry Heart rate Systolic And Diastolic Provider Name and Address Organization Details Last Updated DateTime 4 162.56 cm 37.2 kg/m2 40134.5 4 g 97.7 [degF] 98 % 98 % 94 /min 126/78 mm[Hg] Krystal Fraire RN [place] - [place] [employer] 4 12:31:14 Date Recorded Body weight Body mass index (BMI) Body height Body temperature Heart rate Oxygen saturation Oxygen saturation in Arterial blood by Pulse oximetry Systolic And Diastolic Provider Name and Address Organization Details Last Updated DateTime 3 34503.1 4 g 37.4 kg/m2 162.56 cm 98.3 [degF] 91 /min 100 % 100 % 122/86 mm[Hg] Marc Rosario CMA [employer] 3 14:49:51 Date Recorded Body height Body mass index (BMI) Body weight Body temperature Heart rate Oxygen saturation Oxygen saturation in Arterial blood by Pulse oximetry Systolic And Diastolic Provider Name and Address Organization Details Last Updated DateTime 3 162.56 cm 37.8 kg/m2 33444.3 2 g 97.6 [degF] 83 /min 96 % 96 % 136/82 mm[Hg] Salima Ledezma RN [place] [employer] 3 10:05:18 Date Recorded Body height Body mass index (BMI) Body weight Body temperature Heart rate Oxygen saturation Oxygen saturation in Arterial blood by Pulse oximetry Systolic And Diastolic Provider Name and Address Organization Details Last Updated DateTime 3 162.56 cm 37.9 kg/m2 617179. 91 g 98.1 [degF] 107 /min 96 % 96 % 126/80 mm[Hg] Salima Ledezma RN [place] [facility] [employer] 3 09:54:30 Date Recorded Body mass index (BMI) Body height Oxygen saturation Oxygen saturation in Arterial blood by Pulse oximetry Heart rate Body temperature Body weight Systolic And Diastolic Provider Name and Address Organization Details Last Updated DateTime 1 36.7 kg/m2 162.56 cm 98 % 98 % 97 /min 97.3 [degF] 61942.7 7 g 110/72 mm[Hg] Not Available [employer] 3 10:43:07 Social History Question Answer Notes LastModified by Organizat ion Details LastModified Time Tobacco Smoking Status Current Every Day Smoker 10 per day Tracey Phelps MD [address] [place] [address], [address], [facility] [employer] 12/22/2022 14:56:35 What Was The Date Of Your Most Recent Tobacco Screening? 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 Family History Relationship Description Onset Age of this Age Resolved Age Notes LastModified by Organization Details LastModified Time Maternal Grandmother Malignant tumor of breast [email or web address] Not available 2022 14:55:11 Father Hepatic failure [email or web address] Not available 2022 14:55:45 Mother Chronic obstructive pulmonary disease [email or web address] Not available 2022 14:56:08 Medical History No medical history recorded. Gynecological HistoryNo gynecological history recorded. Obstetrics History GPAL:G 0 P 0 0 0 0 Past Encounters Encounter ID Performer Location Encounter Start Date Encounter Closed Date Diagnosis/Indication Diagnosis SNOMED-CT Code Diagnosis ICD10 Code Diagnosis Note [id number] Tracey Phelps MD [facility] Primary Care [facility] [address] [facility] [address] [place] [address] 05/18/2021 00:00:00 05/18/2021 14:13:01 [id number] POOL Valentine [facility] [address] [place] [address] 07/26/2021 00:00:00 07/26/2021 16:16:51 [id number] Tracey Phelps MD [facility] Primary Care [facility] [address] [facility] [address] [place] [address] 12/22/2022 14:38:49 12/22/2022 15:31:10 Chest pain 27885767 R07.9 cardiology referral givenrevie wed s/s that warrant urgent/philippe rgent eval in meantime Gastroesop hageal reflux disease 356778060 K21.9 Avoid greasy/spi cy/acidic foodEat small, frequent mealsCall if any worsening symptoms including increased pain or blood in stools or if symptoms do not resolve in 14 dayspantop razole 40 mg dailyRUQ US Fatigue 80028180 R63.5 N95.1 R53.83 Vitamin D deficiency 347 04014 E55.9 [id number] Tracey Phelps MD [facility] Primary Care [address] [place] [address] 03/07/2023 09:55:49 03/07/2023 10:31:21 Uncontrolled type 2 diabetes mellitus 865211150 E11.65 not in good control, a1c was 7.8has failed metformin due to GI s/eadd glipizide ER 5 mg daily with foodf/u in 3 months or sooner if needed Anxiety 22813189 F41.9 call or portal message in 4 weeks for updateshe would like to avoid daily med if possible [id number] Tracey Phelps MD [facility] Primary Care [address] [place] [address] 06/07/2023 09:48:12 06/07/2023 10:43:20 Uncontrolled type 2 diabetes mellitus 222909008 E11.65 improving per patient home readingsch marisela [id number] e glipizide ER 5 mg daily with foodf/u in 6 months or sooner if needed Anxiety 20511553 F41.9 improvedok to continue buspirone prn [id number] WILNER Taylor [facility] Primary Care [address] [place] [address] 10/27/2023 12:21:17 10/27/2023 16:00:33 Anxiety 03091196 F41.9 -chronic, stable, hx of panic attacks-Pt currently taking buspirone 10mg (1/2 tab)-she is noting that it gives her a flat affect-she has not tried anything other than the buspirone- she would like to try another medication -will trial escitalopr am 10mg and propanolol 10mg-f/u in 1 month Morbid obesity 289280975 E66.01 -pt has drasticall y changed her diet, cut out carbs and mt. dew-still does drink 1 soda daily-walk s 2-3 miles for exercise Health Concerns Section Related Observation LastModified by Organization Detai ls LastModified Time None Recorded Concern Status LastModified by Organization Details LastModified Time None Recorded Advance Directives Directive None Recorded Payers Insurance Date Sequence Insurance Name Policy Number Policy Marcos Covered Member ID Marocs Member ID Guarantor Name 03/07/2023 1 [facility] Bennie Delgado [id number] Bennie Delgado 11/02/2023 1 [facility] ([facility] 000 Bennie Delgado [id number] Bennie Delgado 12/22/2022 1 *SELF PAY* Davi Delgado Notes Date Note Type Note Provider Name and Address Organization Details Recorded Time 12/22/2022 text/html ROS as noted in the HPI Here to talk about concerns about heart. She has been to ER twice in past 2 years due to symptoms that felt like a heart attack-dizzy/off balance. Was taken by ambulance the first time bp 178/100s, work up was ok. About a year later, she started feeling off, felt bp going through the roof. She was taken to ER by with normal work up. Recently (over the past 4-5 months) she gets chest pains-can be starbursts mid chest between breasts that can radiate to the back. She can't sleep or side or stomach anymore because it hurts/pinches her chest/upper abd. Her abd will bloat and distend-sometimes looks 9 months . Chest pain is happening up to once per day, can last up to an hour. +sob, +nausea, no vomiting. Abd distension can occur if she eats things that has flour in it, starch, or with a dye in it. No d/c. She eats 6+ tums per day. +increased belching/gas. She does have GERD. She does clear her throat, pork or capsules get stuck when she tries to swallow-she has had to vomit it back up. She had EGD done around 7 years ago. She can't lose weight, poor libido, fatigue. She has poor motivation. She is napping frequently through the day. Last period 5 years ago Tracey Phelps MD [address] [facility], [facility] [address], [place], [address], [facility] [employer] 01/20/2023 12:28:14 03/07/2023 text/html ROS as noted in the HPI she has cut back on soda and starches, she is frustrated because she is gaining weight and a1c is up to 7.8. She is active-walks regularly. anxiety through the roof, can't sleep, heart racing (being worked up by cardiology). No new stressors. She has had this in the past. no si/hi. Tracey Phelps MD [address] [facility], [facility] [address], [place], [address], [employer] 03/22/2023 07:37:03 06/07/2023 text/html ROS as noted in the HPI she has cut back on soda and starches, she is frustrated because she is gaining weight and a1c is up to 7.8. She is active-walks regularly. anxiety through the roof, can't sleep, heart racing (being worked up by cardiology). No new stressors. She has had this in the past. no si/hi. update 06/07/23: home blood sugars are running 100s AM fasting. Yesterday had a low of 69 but otherwise no hypoglycemic events. Sleep is better. On weekends she doesn't need any prn anxiety Tracey Phelps MD [address] [facility], [facility] [address], [place], [address], [employer] 06/07/2023 10:34:11 10/27/2023 text/html Pt is here to discuss anxiety medications WILNER Taylor [address] [facility], [facility] [address], [place], [address], [employer] 10/27/2023 15:57:08 OBGyn Episode No OBEpisode recorded.
--- OUTSIDE RECORDS SUMMARY | 2025-05-17 22:42 | XMS_ITS | Data Portability ---
Author Organization [place] [facility], Main Office Address [address] [facility] [address] [place] [address] Care Team Providers Care Assembler Trim Name Role Phone MICHAEL MOYAA Primary Care Provider Assessment No assessment recorded. Plan of Treatment Reminders Order Date Submit Date Provider Last Modified By Organization Details Last Modified Time Details Appointments None record ed. Lab None record ed. Referral None record ed. Procedures None record ed. Surgeries None record ed. Imaging None record ed. Medication Orders None record ed. Patient TargetsNo targets recorded. Patient Instructions Encounter Date Encounter Id Patient Instructions Last Modified By Organization Details Last Modified Time 12/14/2018 [id number] constipation: care instructions Not available 12/23/2018 19:49:45 hemorrhoids: car e instructions Not available 12/23/2018 19:49:45 Patient counsele d to F/U immediately if temp. greater than 100.4, if is unable to urinate, increased rectal pain or any other concerns. Not available 12/23/2018 19:46:53 She will follow up in 1 - 3 weeks and I will treat her LL internal hemorrhoid and also look at her right anterior to help decide when to do her 3rd treatment. I discussed with her she will be a total of 4 - 6 treatments depending on how she does. On today's visit I spent a total of 45 minutes [id number] with the patient and over 50% of this time was spent discussing treatment options, risks/benefits of each option and alternatives. Not available 12/23/2018 19:48:50 Reason for Referral None Reported. Problems Name Problem SNOMED Code Status Onset Date Resolution Date Notes Provider Name and Address Organization Details Recorded Time Pile easily reducible 441561357 Active 2018 Tx #1: 2 9 1.2 x 6 RP Tx #2: Radha Potter MD [address] [place] [address],[address], [address], [facility] [place] 9 19:46:21 External hemorrhoids 05479022 Active 2018 Radha Potter MD [address] [place] [address],[address], [place], [address], [facility] [place] 9 19:46:27 Constipation 51903926 Active 2018 Radha Potter MD [address] [place] [address],[address], [address], [facility] 9 19:46:33 Problem Notes None recorded. Procedures Surgical History Date Name Laterality Status Provider Name and Address Organization Details Recorded Time 9 IRC completed Radha Potter MD [address] [place] [address],[address], [place], [address], [facility] 12/23/2018 19:43:42 8 Date of Last [facility]ammogram [facility] 12/14/2018 12:05:07 7 Date of Last Pap Smear [facility] 12/14/2018 12:05:11 4 ligation of bilateral fallopian tubes completed Radha Potter MD [address] [place] [address],[address], [place], [address], [facility] 12/23/2018 19:37:39 [facility]es[facility] Section [facility] 12/14/2018 12:03:53 Caesarean Section completed Radha Potter MD [address] [place] [address],[address], [place], [address], [facility] 12/23/2018 19:37:11 Imaging Results None recorded. Procedure Notes None recorded. Medical Equipment None Reported. Allergies No known drug allergies Medications Name Sig Start Date Stop Date Status Note LastModified by Organization Details LastModified Time amoxicillin 500 mg capsule 12/14 completed Not Available Not Available Not Available atorvastatin 40 mg tablet active Not Available Not Available Not Available metformin 500 mg tablet active Not Available Not Available No t Available bupropion HCl SR 150 mg tablet,12 hr sustained-rel ease active Not Available Not Available Not Available omeprazole 40 mg capsule,delay ed release active Has not started taking yet -12/14/18 ROSY Not Available Not Available Not Available amoxicillin 875 mg-potassium clavulanate 125 mg tablet 12/14 completed Not Available Not Available Not Available Vitals Date Recorded Body weight Body mass index (BMI) Body height Body temperature Respiratory rate Heart rate Systolic And Diastolic Provider Name and Address Organization Details Last Updated DateTime 9 84041.9 9 g 36.2 kg/m2 162.56 cm 98.5 [degF] 12 /min 86 /min 118/84 mm[Hg] Reshma Montilla [facility] [place] 9 12:11:44 Social History Question Answer Notes LastModified by Organizat ion Details LastModified Time Tobacco Smoking Status Current Every Day Smoker Not Available [facility] 08/25/2020 03:38:34 How Much Tobacco Do You Chew? None [id number] Information not available 08/25/2020 Tobacco Amount/Day 1/2 Pack [email or web address] Information not available 12/14/2018 Alcohol Use No [email or web address] Information not available 12/14/2018 Caffeine Use Yes [email or web address] Informatio n not available 12/14/2018 Caffeine Type Soda [email or web address] Informati on not available 12/14/2018 Caffeine Amount 3-4 Cans/day [email or web address] Information not available 12/14/2018 Illicit Drug Use No [email or web address] Information not available 12/14/2018 Type Of Tobacco Cigs [email or web address] Information not available 12/14/2018 What Was The Date Of Your Most Recent Tobacco Screening? 12/23/2018 [id number] Information not available 08/25/2020 How Many Years Have You Smoked Tobacco? 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 Family History Relationship Description Onset Age of this Age Resolved Age Notes LastModified by Organization Details LastModified Time Maternal Grandmother Malignant tumor of breast 50 [email or web address] Not available 12:01:12 Maternal Grandmother Heart disease [email or web address] Not available 12:02:21 Paternal Grandmother Heart disease [email or web address] Not available 12:02:34 Father Diabetes mellitus [email or web address] Not available 12:02:56 Mother Diabetes mellitus [email or web address] Not available 12:02:56 Brother Diabetes mellitus [email or web address] Not available 12:02:56 Brother Diabetes mellitus [email or web address] Not available 12:02:56 Medical History Condition Response Coronary Artery Disease N Other N Atrial Fibrillation N Kidney Stones N Hyperthyroidism N Hernia N Hypothyroidism N Glaucoma N Depression N COPD N Accidental Bowel Leakage N Headaches/Migraines N Deep Vein Thrombosis N Cardiac Dysrhythmia N Anxiety Disorder N MRSA/VRE Exposure N Diverticulosis N Cancer N Stroke N Head Trauma N Genital Warts N Crohn's Disease N Liver Disease/Hepatitis N HIV/AIDS N High Cholesterol Y Irritable Bowel Syndrome N Kidney Disease N Autoimmune Disease N Anemia N Celiac Disease N Arthritis/Gout N Anal/Rectal Trauma/Injury N Diabetes Y Cataracts N Bleeding Disorder N Seizures/Epilepsy N Diverticulitis N Asthma N Reflux/GERD N Ulcerative Colitis N Sleep Apnea N Aneurysm N Heart Disease N Pulmonary Embolism N Hypertension N Colon/Rectal Polyps N Gynecological History Statement/Question Response Number of Pregnancies? 3 Tear or Laceration During Delivery? N Date of Last Mammogram 11/23/2017 Could You Be or Are You Currently Pregna nt? N Number of C-Sections? 2 Number of Vaginal Deliveries? 0 Accidental Bowel Leakage Post Delivery? N Episiotomy During Delivery? N Date of Last Pap Smear 02/20/2017 Obstetrics History GPAL:G 0 P 0 0 0 0 Past Encounters Encounter ID Performer Location Encounter Start Date Encounter Closed Date Diagnosis/Indication Diagnosis SNOMED-CT Code Diagnosis ICD10 Code Diagnosis Note [id number] Radha Potter MD Main Office [address] [place] [address] 12/14/2018 11:52:25 12/14/2018 14:06:54 Pilbill easily reducible 249847226 K64.1 Stage 2 - 3 internal hemorrhoid s: I do think she would benefit from infrared coagulatio n and she wants to proceed. Full informed consent was given including risks/bene fits and alternativ es. All questions were answered. Her first IRC treatment was done today on the right posterior. External hemorrhoids 239 54745 K64.4 These will improve with IRC. She understand s the only way to directly treat external hemorrhoid s would be with surgery and she does not wish to pursue this and her hemorrhoid s are not bad enough to require surgery. Constipation 10182919 K5 9.00 She of course needs to be eating a high fiber diet and drinking plenty of water. I advised that she start Bene Fiber at very low dose (1/4 - 1/2 tsp daily) and slowly increase. Once she figures out what dose works for her she needs to take it daily and forever to maintain soft daily BM's. Health Concerns Section Related Observation LastModified by Organization Detai ls LastModified Time None Recorded Concern Status LastModified by Organization Details LastModified Time None Recorded Advance Directives Directive None Recorded Payers Insurance Date Sequence Insurance Name Policy Number Policy Marcos Covered Member ID Marcos Member ID Guarantor Name 12/14/2018 1 [employer] - DOS PRIOR TO 21 - [facility] BENEFITS PLAN [id number] Bennie Delgado [id number] Bennie Delgado Notes Date Note Type Note Provider Name and Address Organization Details Recorded Time 12/14/2018 text/html ROS as noted in the HPI This is a very pleasant 43 year old woman who has had symptoms from her hemorrhoids on and off for about 4 - 5 years (they started after her tubal ligation). Her episodes of bad pain usually only last a few days but then they improve. This current episode started 2 - 3 weeks ago and is not getting any better. It is also much more painful than is usual. She presents today for an evaluation and to discuss her treatment options. Bleeding: She frequently sees bright red blood on the wipe and occasionally some drip in the water with BM's. She has never had heavy bleeding. She has never had leakage of blood in between BM's. Pain: As above. BM's can be painful. This is not a ripping type of pain. The pain can last for 10 - 20 minutes after a BM but then subsides. She does get some jabs of pain throughout the day. She can have discomfort throughout the day. Itching: Not really Discharge: It has been hard to get clean after BM's because of swelling and irritation. She does not have difficulty staying clean - she does not have to re-wipe. She has no drainage. She does feel she has an odor occasionally but this is not associated with any leakage. Prolapse: Not that she feels. External swelling: She does have external swelling. Discomfort: She has the external irritation/discomfo rt/pain. She has internal pressure, a sense of being blocked when trying to have a BM and a sense of incomplete emptying after BM's. Previous Hemorrhoid Treatment: She has tried multiple OTC products and feels nupercainal works the best. She has never had any prescriptions for or procedures on her hemorrhoids. Previous Lower GI Endoscopy: She had a negative colonoscopy about 5 years ago (this was done due to stomach issues. Bowel Habits: She has daily BM's. These are not always soft depending on her diet. She has never taken any products for her BM's. Radha Potter MD [address] [facility], [place], [address], [facility] 12/23/2018 19:49:48 OBGyn Episode No OBEpisode recorded.
--- NOTE | 2025-05-17 22:43 | ECG_ITS ---
Test Date: 2025-05-17 22:48:42 Measurements Intervals [place] Rate: 95 P: 52 AL: 139 QRS: 32 QRSD: 83 T: 45 QT: 353 QTc: 446 Interpretive Statements SINUS RHYTHM POSSIBLE LEFT ATRIAL ENLARGEMENT [-0.1mV P WAVE IN V1/V2] NONSPECIFIC ST & T-WAVE ABNORMALITY No previous ECG available for comparison Electronically Signed On 05-18-2025 17:54:19 CDT by Adrian Hurt M.D.
[2025-05-17 22:47] VITALS: BP 129/69; PULSE 97; RESP 20; TEMP 36.8; O2SAT 96
[2025-05-17 23:17] VITALS: BP 118/73; PULSE 87; RESP 18; O2SAT 96
[2025-05-17 23:28] VITALS: O2SAT 96
--- OUTSIDE RECORDS SUMMARY | 2025-05-17 23:42 | XMS_ITS | Clinical Summary ---
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
[2025-05-17 23:53] LABS: Alanine Aminotransferase 50 U/L (6-35); Albumin Level 4.1 g/dL (3.5-5.1); Alkaline Phosphatase 102 U/L (38-126); Anion Gap 6 mmol/L (4-12); Aspartate Amino Transferase 36 U/L (14-36); Bilirubin,Total 0.8 mg/dL (0.2-1.3); Blood Urea Nitrogen 10 mg/dL (7-17); Calcium 9.8 mg/dL (8.4-10.2); Carbon Dioxide 27 mmol/L (22-30); Chloride 98 mmol/L (98-107); Estimated CRCL calculation 85 ml/min; Estimated Glomerular Filt Rate > 60; Glucose 428 mg/dL (65-110); Lipase 197 U/L (23-300); Potassium 3.9 mmol/L (3.4-5.0); Sodium 131 mmol/L (137-145); Total Protein 6.9 g/dL (6.3-8.2)
[2025-05-17 23:54] LABS: INR 0.9; Partial Thromboplastin Time 24.6 Seconds (22.3-36.8); Prothrombin Time 12.4 Seconds (11.1-14.7)
[2025-05-18 00:05] LABS: Troponin I < 0.012 ng/mL (0.000-0.034)
[2025-05-18 00:10] LABS: Hematocrit 43.1 % (37.0-47.0); Hemoglobin 15.0 g/dL (12.0-15.0); Immature Granulocyte Percent A 0.7 % (0-0.5); Lymphocytes Absolute Auto 3.55 K/mm3 (0.9-3.2); Mean Corpuscular HGB Conc 34.8 g/dl (32-36); Mean Corpuscular Hemoglobin 31.0 pg (26-34); Mean Corpuscular Volume 89.0 fl (80-100); Nucleated Red Blood Cells Absolute Auto 0.000 K/mm3 (0.0-0.012); Nucleated Red Blood Cells Perc 0.0 % (0.0-0.2); Platelet Count Result 254 k/mm3 (150-375); Red Blood Count 4.84 M/mm3 (4.2-5.4); White Blood Count 8.6 K/mm3 (4.5-10.0)
--- NOTE | 2025-05-18 00:24 | PC.NURSE ---
Pt states she took ASA at home. Per Dr Greco, no need to give ASA from protocol.
[2025-05-18 01:07] VITALS: BP 127/78; PULSE 85; RESP 18; O2SAT 96
[2025-05-18] MEDS: LACTATED RINGERS 1,000 ML 999 ML IV CONT (01:42)
--- NOTE | 2025-05-18 01:50 | ECG_ITS ---
Test Date: 2025-05-18 01:50:13 Measurements Intervals [place] Rate: 77 P: 50 MI: 142 QRS: 23 QRSD: 85 T: 30 QT: 403 QTc: 458 Interpretive Statements SINUS RHYTHM NONSPECIFIC ST AND T-WAVE ABNORMALITIES Compared to ECG 05/17/2025 22:48:42 no significant changes Electronically Signed On 05-18-2025 17:57:19 CDT by Adrian Hurt M.D.
[2025-05-18 02:03] LABS: Troponin I < 0.012 ng/mL (0.000-0.034)
--- NOTE | 2025-05-18 02:30 | ED_ITS ---
HPI - Chest Pain General Chief Complaint: Chest Pain Stated Complaint: chest pain Time Seen by Provider: 05/17/25 23:20 Related Data Home Medications ?Medication ?Instructions ?Recorded ?Confirmed ?Last Taken ?Type glipizide 5 mg tablet, extended mg PO 09/29/23 09/29/23 Unknown History release 24 hr Allergies Allergy/AdvReac Type Severity Reaction Status Date / Time gel capsules AdvReac Difficulty Uncoded 05/17/25 22:56 Swallowing PMFSH Family History Family History Mother Family history of mental disorder Family history of diabetes mellitus in first degree relative Diabetes mellitus Family history of hypercholesterolemia Sibling Family history of mental disorder Family history of diabetes mellitus in first degree relative Father Family history of diabetes mellitus in first degree relative Grandparent Family history of malignant neoplasm of breast Family history of heart disease in male family member before age 55 Cerebrovascular accident Other Family history of malignant neoplasm of male breast Social History Social History Smoking status: Current every day smoker Tobacco type: cigarettes Second hand tobacco smoke exposure: Yes Alcohol intake: never Course Vital Signs Vital signs: Vital Signs Temperature 98.3 F 05/17/25 22:47 Pulse Rate 97 05/17/25 22:47 Respiratory Rate 20 05/17/25 22:47 Blood Pressure 129/69 05/17/25 22:47 Pulse Oximetry 96 05/17/25 22:47 Oxygen Delivery Room Air 05/17/25 22:47 Temperature 98.3 F 05/17/25 22:47 Pulse Rate 75 05/18/25 03:15 Respiratory Rate 17 05/18/25 03:15 Blood Pressure 118/75 05/18/25 03:15 Pulse Oximetry 98 05/18/25 03:15 Oxygen Delivery Room Air 05/17/25 23:28 MDM - Chest Pain MDM Narrative Medical decision making narrative: ED COURSE AND MEDICAL DECISION MAKINF presenting with chest pain. EKG done in triage negative for acute ischemic changes. Cardiac workup is initiated. EKG: Performed in triage and interpreted by me. Normal sinus rhythm. Rate 95. Normal axis. TX normal. QRS duration normal. QTc normal. No pathologic Q waves. Some slight flattened T waves III and aVF and V3; No RV strain pattern. HEART score is 1 with no acute ischemic changes on EKG and negative troponin making ACS unlikely. Wells low risk with negative PERC making PE unlikely and no DVT symptoms. Presentation not consistent with dissection or aneurysm without radiation of pain or pulse deficits. CXR negative for mediastinal widening. No abdominal pain or signs of sepsis that would be concerning for esophageal perforation or mediastinitis. No cardiomegaly or JVD to suggest pericardial effusion/tamponade. Repeat EKG at 3 hours on my independent interpretation shows normal sinus rhythm, normal rate and axis, normal TX, QRS, QTC, the T-wave abnormality still present without any changes. On repeat evaluation just prior to discharge, the patient is no acute distress. She has no chest pain at this time. I had a long discussion with the patient and with shared decision making, she is comfortable with outpatient management; I did discuss she has normal labs including troponins here, no ST elevations on EKG however given the slight abnormalities she should follow-up with cardiology and return immediately if her symptoms return or worsen. She was given clear return instructions by myself in person as well as on discharge paperwork. Lab Data 05/17/25 23:33 05/17/25 23:33 Labs: Lab Results 05/17/25 05/18/25 Range/Units 23:33 01:35 WBC 8.6 (4.5-10.0) K/mm3 RBC 4.84 (4.2-5.4) M/mm3 Hgb 15.0 (12.0-15.0) g/dL Hct 43.1 (37.0-47.0) % MCV 89.0 (80-100) fl MCH 31.0 (26-34) pg MCHC 34.8 (32-36) g/dl RDW 12.2 (11.5-14.5) % Plt Count 254 (150-375) k/mm3 MPV 10.4 (7.4-10.4) fl Immature Gran % (Auto) 0.7 H (0-0.5) % Neut % (Auto) 48.0 (45.5-73.1) % Lymph % (Auto) 41.3 (18.3-44.2) % Cochran % (Auto) 6.8 (2.6-8.5) % Eos % (Auto) 2.7 (0-4.4) % Baso % (Auto) 0.5 (0.2-1.2) % Lymph # (Auto) 3.55 H (0.9-3.2) K/mm3 Cochran # (Auto) 0.6 (0.1-0.6) K/mm3 Eos # (Auto) 0.2 (0-0.3) K/mm3 Baso # (Auto) 0.0 (0.0-0.1) K/mm3 Abs Immat Gran (auto) 0.06 H (0.00-0.031) K/mm3 Absolute Neuts (auto) 4.1 (1.3-6.7) K/mm3 Absolute Nucleated RBC 0.000 (0.0-0.012) K/mm3 Nucleated RBC % 0.0 (0.0-0.2) % PT 12.4 (11.1-14.7) Seconds INR 0.9 APTT 24.6 (22.3-36.8) Seconds Sodium 131 L (137-145) mmol/L Potassium 3.9 (3.4-5.0) mmol/L Chloride 98 (98-107) mmol/L Carbon Dioxide 27 (22-30) mmol/L Anion Gap 6 (4-12) mmol/L BUN 10 (7-17) mg/dL Creatinine 0.76 (0.7-1.0) mg/dL Estim Creat Clear Calc 85 ml/min Estimated GFR > 60 (59 - ) Glucose 428 H (65-110) mg/dL Calcium 9.8 (8.4-10.2) mg/dL Total Bilirubin 0.8 (0.2-1.3) mg/dL AST 36 (14-36) U/L ALT 50 H (6-35) U/L Alkaline Phosphatase 102 (38-126) U/L Troponin I < 0.012 < 0.012 (0.000-0.034) ng/mL Total Protein 6.9 (6.3-8.2) g/dL Albumin 4.1 (3.5-5.1) g/dL Lipase 197 (23-300) U/L Discharge Plan Discharge Clinical Impression: Atypical chest pain Patient Disposition: Home Condition: Stable Instructions: Chest Pain (ED) Additional Instructions: Please follow-up with a regulatory specialist and with your PCP; make sure to take your medications as prescribed and keep your blood sugar under control. If your pain returns or worsens, please come back to the ER. Patient Language: Sami Prescriptions: New famotidine 20 mg tablet 20 mg PO DAILY Qty: 30 0RF No Action glipizide 5 mg tablet extended release 24hr PO cyclobenzaprine 10 mg tablet 10 mg PO TID PRN (Reason: muscle spasm) Qty: 20 0RF prednisone 50 mg tablet 50 mg PO DAILY 5 Days Qty: 5 0RF Follow-up/Referrals: Lenin,Tracey Swift MD [Primary Care Provider] - Tracey Marin DO [Physician] - 2 Days
[2025-05-18 03:15] VITALS: BP 118/75; PULSE 75; RESP 17; O2SAT 98
== END 2025-05-18 03:22 | disposition home or self-care (01) ==
PROVIDERS: Emergency Provider Emergency Medicine; PCP Family Medicine
DX: R07.89 Other chest pain (principal); F17.210 Nicotine dependence, cigarettes, uncomplicated; R94.31 Abnormal electrocardiogram [ECG] [EKG]
CPT/HCPCS: 36415; 71046; 80053; 83690; 84484; 85025; 85610; 85730; 93005; 96360; 99284; J7120